=== PATIENT | female | born 1985 | race Caucasian/White ===

== ENCOUNTER 2021-03-07 22:17 | Emergency (ER) | payer OTHER ==
[~2021-03-07] VITALS: Ht 160 cm; Wt 83.9 kg
--- NOTE | 2021-03-07 22:25 | NUR ---
Patient arrive at the ER with c/o of chest pain and dizziness.
--- NOTE | 2021-03-07 22:26 | NUR ---
Dr. Bishop at bedside for MSE.
[2021-03-07] MEDS ORDERED: ACETAMINOPHEN 325 MG TABLET PO ONE (22:30)
[2021-03-07] MEDS ORDERED: LORAZEPAM 2 MG/1 ML VIAL IV ONE (22:30)
[2021-03-07] MEDS ORDERED: IV NORMAL SALINE 1000 ML BAG IV ONE (22:30)
[2021-03-07 23:05] LABS: MEAN CORPUSCULAR HEMOGLOBIN 27.6 uug (24.7-32.8); MEAN CORPUSCULAR VOLUME 83.3 fL (75.5-95.3); PLATELET COUNT (AUTO) 201 K/uL (179-408)
[2021-03-07] MEDS ORDERED: ACETAMINOPHEN 325 MG TABLET ONE (23:05)
[2021-03-07] MEDS ORDERED: LORAZEPAM 2 MG/1 ML VIAL ONE (23:05)
[2021-03-07] MEDS ORDERED: LEVO100T10 PO (23:07)
[2021-03-07] MEDS ORDERED: DEXT5TAB15 PO (23:08)
--- NOTE | 2021-03-07 23:08 | NUR ---
Dr. Bishop at bedside.
[2021-03-07 23:13] LABS: CREATININE 0.7 mg/dL (0.6-1.3); POTASSIUM 3.7 mmol/L (3.5-5.1)
[2021-03-07] MEDS ORDERED: HYDR-3641 GT (23:36)
[2021-03-08] LABS: *URINE HCG, QUAL NEGATIVE (NEGATIVE)
--- NOTE | 2021-03-08 00:03 | NUR ---
Dr. Bishop at bedside
[2021-03-08 00:08] LABS: *AMPHETAMINE, URINE POSITIVE (NEGATIVE); *CANNABINOID, URINE NEGATIVE (NEGATIVE); *COCCAINE, URINE NEGATIVE (NEGATIVE); *OPIATE, URINE NEGATIVE (NEGATIVE); *PHENCYCLIDINE SCREEN,URINE NEGATIVE (NEGATIVE)
[2021-03-08] MEDS ORDERED: HYDR-3641 PO (00:50)
--- NOTE | 2021-03-08 00:53 | NUR ---
Patient discharged to home in stable condition. Written and verbal after care instructions given. Patient verbalizes understanding of instructions. Stressed follow up or return to ER for worsening s/s. All belongings with patient.
[2021-03-08 01:02] VITALS: BP 118/73
== END 2021-03-08 00:53 | disposition home or self-care (01) ==
LOC: ER 22:21
DX: F41.0 Panic disorder [episodic paroxysmal anxiety] (principal); F15.10 Other stimulant abuse, uncomplicated; M79.651 Pain in right thigh; E03.9 Hypothyroidism, unspecified; F90.9 Attention-deficit hyperactivity disorder, unspecified type; Z79.890 Hormone replacement therapy; Z79.899 Other long term (current) drug therapy
CPT/HCPCS: 36415; 71045; 80048; 80307; 84703; 85025; 93005; 96361; 96374; 99285; J2060; A4663; J7030

== ENCOUNTER 2021-09-14 00:07 | Emergency (ER) | payer SELFPAY ==
[~2021-09-14 00:07] MED LIST: DEXT5TAB15 PO; HYDR-3641 GT; HYDR-3641 PO; LEVO100T10 PO
--- NOTE | 2021-09-14 00:07 | NUR ---
Patient was noted going to the registration window and stating "I don't want to be seen anymore." Patient seen leaving ER.
--- NOTE | 2021-09-14 00:09 | NUR ---
Patient called to be triaged but was not present in the waiting room or outside of ER.
--- NOTE | 2021-09-14 00:35 | NUR ---
Patient was called to be triaged but was not present in the waiting or outside of ER. PATIENT WAS NOT TRIAGED OR SEEN BY [facility].
== END 2021-09-14 00:36 | disposition left against medical advice (07) ==
LOC: ER 00:10
DX: Z53.21 Procedure and treatment not carried out due to patient leaving prior to being seen by health care provider (principal)